=== PATIENT | male | born 1970 | race Caucasian/White ===

== ENCOUNTER 2021-09-03 19:28 | Emergency (ER) | payer OTHER, SELFPAY ==
[2021-09-03 19:36] VITALS: BP 135/92; PULSE 96; RESP 16; TEMP 36.3; O2SAT 96; BMI 25.8
--- NOTE | 2021-09-03 23:21 | ED_ITS ---
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 He actually had foot surgery with [facility] orthopedic surgery , 4 weeks ago. He was supposed to get up to [place] to have his sutures removed over he was unable to provide transportation he called the office and was instructed to go to the nearest emergency department have his sutures removed. Surgery was approximately 4 weeks ago. He has no erythema fever or increased pain. He continues to have a pain in his right big toe. Review of Systems Review of Systems Narrative: GENERAL: Denies chills,fever HEENT: Denies throat pain RESPIRATORY: Denies dyspnea, cough, wheezing CARDIOVASCULAR: Denies chest pain, palpitations GASTROINTESTINAL: Denies nausea, vomiting MUSCULOSKELETAL: Denies extremity pain, injury SKIN: See HPI NEUROLOGIC: Denies weakness, dizziness, headache, numbness 8 point review of systems is negative except for those stated above and HPI Patient History Social History Smoking Status: Current every day smoker Smoking Status: Current every day smoker Substance Use Type: does not use Exam Initial Vital Signs Initial Vital Signs: Vital Signs Temperature 97.3 F L 09/03/21 19:36 Pulse Rate 96 H 09/03/21 19:36 Respiratory Rate 16 09/03/21 19:36 Blood Pressure 135/92 H 09/03/21 19:36 Pulse Oximetry 96 09/03/21 19:36 GENERAL: Well-appearing, well-nourished and in no acute distress. CARDIOVASCULAR: peripheral pulses in tact, cap refill <2 sec RESPIRATORY: No respiratory distress, speaks in full sentences without difficulty EXTREMITIES: Normal range of motion, no clubbing or edema. Neurovascularly intact Pin present right great toe. NEUROLOGICAL: Cranial nerves II through XII grossly intact. Normal gait and speech. SKIN: Sutures both medial and lateral side of foot a non erythematous Course Vital Signs Vital signs: Vital Signs - 8 hr 09/03/21 23:45 Pulse Rate 93 H Respiratory Rate 18 Blood Pressure 143/89 H Pulse Oximetry 98 MDM - Recheck/Abnormal Lab/Rx MDM Narrative Medical decision making narrative: 1140 Dr. Coreas, orthopedics from [facility] has been updated on patient's symptoms agrees with suture removal and patient can follow up next week in clinic Sutures were easily removed Discharge Plan Departure Patient Disposition: Home Clinical Impression: Encounter for removal of sutures Activity Restrictions/Additional Instructions: *You have been diagnosed with suture removal *What to do: Continue with orthopedic postoperative recommendations *Continue to take medications as directed *Follow up with your primary care provider in 2-3 days, follow up with ortho next week as scheduled or call [phone] *Return to ER if you should have redness pain swelling, or any new, worsening or concerning symptoms
[2021-09-03 23:45] VITALS: BP 143/89; PULSE 93; RESP 18; O2SAT 98
== END 2021-09-03 23:52 | disposition home or self-care (01) ==
PROVIDERS: Emergency Provider Emergency Medicine
DX: Z48.02 Encounter for removal of sutures (principal)
CPT/HCPCS: 99281

== ENCOUNTER 2021-09-06 16:54 | Emergency (ER) | payer OTHER, MEDICAID, SELFPAY ==
[2021-09-06 16:57] VITALS: PULSE 86; RESP 22; TEMP 36.8; O2SAT 100
--- NOTE | 2021-09-06 17:14 | DI.CT.S_ITS ---
PROCEDURE: CT KIDNEY URETER BLADDER (KUB) INDICATIONS: rt flank pain, +nephrolithiasis TECHNIQUE: Axial sections were acquired from the lung bases to the pubic symphysis. Coronal and sagittal reformats were performed. For radiation dose reduction, the following was used: automated exposure control, adjustment of mA and/or kV according to patient size. COMPARISON: [facility], CT, ABD/PELVIS W/CON (PNL), 03/27/2011, 11:27. FINDINGS: Image quality: Excellent. Lung bases: Unremarkable. Heart: No significant findings. URINARY: Right Kidney: A 2 mm nonobstructing calculus is seen in the inferior pole of the right kidney. No hydronephrosis. Right Ureter: There is mild right periureteral fat stranding without significant hydroureter. Left Kidney: No renal calculi or hydronephrosis. Left Ureter: No hydroureter. Bladder: A 2 mm calculus is seen in the posterior dependent portion of the bladder. No significant bladder wall thickening is seen. ABDOMEN: Liver: Unremarkable. Gallbladder: Unremarkable. Biliary ducts: Unremarkable. Pancreas: Unremarkable. Spleen: Unremarkable. Adrenal Glands: Unremarkable. Stomach and Bowel: Stomach, small bowel loops, and colon are unremarkable. Normal appendix. Peritoneum: No abnormal intraperitoneal fluid. No free air. Ventral Wall: No hernia. Abdominal Nodes: No enlarged retroperitoneal or mesenteric lymph nodes. Vessels: Aorta and inferior vena cava are normal in size. PELVIS: Pelvic Organs: Unremarkable. Pelvic Nodes: Unremarkable. Miscellaneous: No inguinal hernias are seen. Bones: Unremarkable. IMPRESSION: 1. Posterior dependent 2 mm calculus is seen in the bladder. Mild right periureteral stranding is suspicious for recent ureteral transit. No significant hydroureter or hydronephrosis is seen. 2. Additional nonobstructing 2 mm calculus in the inferior pole of the right kidney. Dictated by: Hilario Austin M.D. on 09/06/2021 at 17:34 Approved by: Hilario Austin M.D. on 09/06/2021 at 17:40
[2021-09-06 17:23] LABS: Add Manual Diff / Slide Review NO; Basophils Absolute Auto 100 /uL (0-100); Basophils Percent Auto 1.5 % (0-2); Eosinophils Absolute Auto 200 /uL (0-450); Eosinophils Percent Auto 3.6 % (2-4); Hematocrit 43.4 % (41-53); Lymphocytes Absolute Auto 1800 /uL (1100-4500); Lymphocytes Percent Auto 37.5 % (25-40); Mean Corpuscular HGB Conc 34.4 % (30-36); Mean Corpuscular Hemoglobin 30.1 PG (26-34); Mean Corpuscular Volume 87.5 fL (80-100); Monocytes Absolute Auto 400 /uL (0-900); Monocytes Percent Auto 7.8 % (3-14); Neutrophils Absolute Auto 2400 /uL (1500-7000); Neutrophils Percent Auto 49.6 % (50-75); Platelet Count 308 X10^3/uL (150-400); Red Blood Cell Count 4.97 X10^6/uL (4.5-5.9); White Blood Cell Count 4.8 X10^3/uL (4.5-11.0)
[2021-09-06 17:48] LABS: Alanine Aminotransferase 23 IU/L (<50); Albumin 4.4 g/dL (3.5-5.0); Albumin Globulin Ratio 1.5 (1.0-2.8); Alkaline Phosphatase 63 U/L (38-126); Aspartate Aminotransferase 26 IU/L (17-59); BUN Creatinine Ratio 13.4 (6-22); Bilirubin Total 0.3 mg/dL (0.2-1.3); Blood Urea Nitrogen 16 mg/dL (9-20); Calcium 9.4 mg/dL (8.4-10.2); Carbon Dioxide 27 mmol/L (22-32); Chloride 107 mmol/L (98-107); Estimated Glomerular Filt Rate > 60.0 mL/min (>60); Globulin 2.9 g/dL (1.7-4.1); Glucose 113 mg/dL (70-100); HEMOLYSIS 20 (0-50); Lipase 125 U/L (23-300); Potassium 4.2 mmol/L (3.4-5.1); Sodium 138 mmol/L (137-145); Total Protein 7.3 g/dL (6.3-8.2)
[2021-09-06] MEDS: TAMSULOSIN 0.4 MG CAPSULE PO (17:52)
[2021-09-06] MEDS: SODIUM CHLORIDE 0.9% 1,000 ML 1000 ML IV (17:52)
--- NOTE | 2021-09-06 18:08 | ED_ITS ---
HPI - Abdominal Pain <DILLAN Peterson - Last Filed: 09/06/21 18:21> General Chief Complaint: Abdominal Pain Stated Complaint: Rt Kidney Pain Time Seen by Provider: 09/06/21 17:14 Source: patient Mode of arrival: Ambulatory History of Present Illness HPI narrative: 51-year-old male presents to the emergency department for right-sided flank pain which started today. He denies this ever happening before, reports it was painful to urinate this morning, patient reports this is the worst pain he has ever had. Denies any chest pain, shortness of breath, difficulty breathing, abdominal pain, nausea vomiting. Endorses that nothing makes his pain better or worse, he is not taking any medication prior to arrival, he has been afebrile, without any pertinent medical history. Related Data Previous Rx's Medication Instructions Recorded tamsulosin 0.4 mg capsule (Flomax) 0.4 mg PO DAILY 14 Days #14 cap 09/06/21 Allergies Allergy/AdvReac Type Severity Reaction Status Date / Time No Known Drug Allergies Allergy Verified 09/06/21 17:44 Review of Systems <DILLAN Peterson - Last Filed: 09/06/21 18:21> Review of Systems Narrative: General: denies fever, chills Head/Neck: denies headache, neck pain Eyes: denies visual changes, eye pain Cardio: denies chest pain, palpitations Respiratory: denies shortness of breath, cough GI: denies abdominal pain, nausea, vomiting, or diarrhea, endorses right flank pain which is the worst of his life : denies dysuria, hematuria MSK: denies joint pain, muscle weakness Skin: denies rash, itching Neuro: denies numbness, tingling Patient History <DILLAN Peterson - Last Filed: 09/06/21 18:21> Social History Smoking Status: Current every day smoker Smoking Status: Current every day smoker Substance Use Type: does not use Exam <DILLAN Peterson - Last Filed: 09/06/21 18:21> Narrative Exam Narrative: Independently reviewed vitals signs and nursing notes. General: Awake, alert, nontoxic, no cardiorespiratory distress Head/Neck: Atraumatic, neck full range of motion Eyes: EOMI, conjunctiva normal Nose: nares patent, no rhinorrhea Mouth/Throat: moist mucus membranes, posterior pharynx normal, no oral lesions Cardio: Regular rate and rhythm, no peripheral edema Respiratory: respirations unlabored without wheezing, stridor, or rales. No retractions. GI: Abdomen soft, nontender, right CVA tenderness to palpation, mostly resolved on exam, patient's CT indicated 2mm renal calculi inferior pole right kidney is nonobstructive, 2mm calculi also visualized in bladder. Patient most likely passed the for stone in triage when he was laying on the floor writhing in pain. He was given Toradol with marked improvement in his pain. MSK: Moves all extremities, neurovascularly intact Skin: Normal capillary refill, no rash Neuro: Normal speech and cognition, normal gait Initial Vital Signs Initial Vital Signs: Vital Signs Temperature 98.3 F 09/06/21 16:57 Pulse Rate 86 09/06/21 16:57 Respiratory Rate 22 09/06/21 16:57 Pulse Oximetry 100 09/06/21 16:57 <Sandi Paige DO - Last Filed: 09/09/21 13:23> Initial Vital Signs Initial Vital Signs: Vital Signs Temperature 98.3 F 09/06/21 16:57 Pulse Rate 86 09/06/21 16:57 Respiratory Rate 22 09/06/21 16:57 Pulse Oximetry 100 09/06/21 16:57 Course <DILLAN Peterson - Last Filed: 09/06/21 18:21> Orders Ordered: Discontinued Medications Hydrocodone Bitart/Acetaminophen (Hydrocodone/Acet 5/325 Tablet) 1 tab PO NOW ONE Stop: 09/06/21 18:10 Last Admin: 09/06/21 18:54 Dose: 1 tab Documented by: ANAYELI Sodium Chloride (Normal Saline 0.9%) 1,000 mls @ 1,000 mls/hr IV BOLUS ONE Stop: 09/06/21 18:15 Last Infusion: 09/06/21 18:55 Dose: 0 mls/hr Documented by: Admin: 09/06/21 17:52 Dose: 1,000 mls/hr Documented by: ANAYELI Ketorolac Tromethamine (Ketorolac 30 Mg/Ml Vial) 15 mg IV NOW ONE Stop: 09/06/21 17:02 Last Admin: 09/06/21 18:52 Dose: 15 mg Documented by: ROSS Ondansetron HCl (Ondansetron 4 Mg/2 Ml Inj) 4 mg IV NOW ONE Stop: 09/06/21 17:01 Last Admin: 09/06/21 18:52 Dose: 4 mg Documented by: ROSS Tamsulosin HCl (Tamsulosin 0.4 Mg Capsule) 0.4 mg PO NOW ONE Stop: 09/06/21 17:15 Last Admin: 09/06/21 17:52 Dose: 0.4 mg Documented by: ANAYELI Vital Signs Vital signs: Vital Signs - 8 hr 09/06/21 16:57 Temperature 98.3 F Pulse Rate 86 Respiratory Rate 22 Pulse Oximetry 100 <Sandi Paige, - Last Filed: 09/09/21 13:23> Orders Ordered: Discontinued Medications Hydrocodone Bitart/Acetaminophen (Hydrocodone/Acet 5/325 Tablet) 1 tab PO NOW ONE Stop: 09/06/21 18:10 Last Admin: 09/06/21 18:54 Dose: 1 tab Documented by: ANAYELI Sodium Chloride (Normal Saline 0.9%) 1,000 mls @ 1,000 mls/hr IV BOLUS ONE Stop: 09/06/21 18:15 Last Infusion: 09/06/21 18:55 Dose: 0 mls/hr Documented by: Admin: 09/06/21 17:52 Dose: 1,000 mls/hr Documented by: ANAYELI Ketorolac Tromethamine (Ketorolac 30 Mg/Ml Vial) 15 mg IV NOW ONE Stop: 09/06/21 17:02 Last Admin: 09/06/21 18:52 Dose: 15 mg Documented by: ROSS Ondansetron HCl (Ondansetron 4 Mg/2 Ml Inj) 4 mg IV NOW ONE Stop: 09/06/21 17:01 Last Admin: 09/06/21 18:52 Dose: 4 mg Documented by: ROSS Tamsulosin HCl (Tamsulosin 0.4 Mg Capsule) 0.4 mg PO NOW ONE Stop: 09/06/21 17:15 Last Admin: 09/06/21 17:52 Dose: 0.4 mg Documented by: ANAYELI Vital Signs Vital signs: Vital Signs - 8 hr 09/06/21 16:57 Temperature 98.3 F Pulse Rate 86 Respiratory Rate 22 Pulse Oximetry 100 MDM - Abdominal Pain <DILLAN Peterson - Last Filed: 09/06/21 18:21> Lab Data Result diagrams: 09/06/21 17:15 09/06/21 17:15 Labs: Lab Results 09/06/21 09/06/21 Range/Units 17:15 17:15 WBC 4.8 (4.5-11.0) X10^3/uL RBC 4.97 (4.5-5.9) X10^6/uL Hgb 15.0 (13.5-17.5) g/dL Hct 43.4 (41-53) % MCV 87.5 (80-100) fL MCH 30.1 (26-34) PG MCHC 34.4 (30-36) % RDW 13.0 (11.6-14.8) % Plt Count 308 (150-400) X10^3/uL Neut % (Auto) 49.6 L (50-75) % Lymph % (Auto) 37.5 (25-40) % Hudson % (Auto) 7.8 (3-14) % Eos % (Auto) 3.6 (2-4) % Baso % (Auto) 1.5 (0-2) % Neut # (Auto) 2400 (2836-4320) /uL Lymph # (Auto) 1800 (6697-2291) /uL Hudson # (Auto) 400 (0-900) /uL Eos # (Auto) 200 (0-450) /uL Baso # (Auto) 100 (0-100) /uL Sodium 138 (137-145) mmol/L Potassium 4.2 (3.4-5.1) mmol/L Chloride 107 (98-107) mmol/L Carbon Dioxide 27 (22-32) mmol/L BUN 16 (9-20) mg/dL Creatinine 1.19 (0.66-1.25) mg/dL Estimated GFR > 60.0 (>60) mL/min BUN/Creatinine Ratio 13.4 (6-22) Glucose 113 H (70-100) mg/dL Calcium 9.4 (8.4-10.2) mg/dL Total Bilirubin 0.3 (0.2-1.3) mg/dL AST 26 (17-59) IU/L ALT 23 (<50) IU/L Alkaline Phosphatase 63 (38-126) U/L Total Protein 7.3 (6.3-8.2) g/dL Albumin 4.4 (3.5-5.0) g/dL Globulin 2.9 (1.7-4.1) g/dL Albumin/Globulin Ratio 1.5 (1.0-2.8) Lipase 125 (23-300) U/L Imaging Data CT KUB: Radiologist's Impression: PROCEDURE:? CT KIDNEY URETER BLADDER (KUB) ? INDICATIONS:? rt flank pain, +nephrolithiasis ? TECHNIQUE:? Axial sections were acquired from the lung bases to the pubic symphysis.? Coronal and sagittal reformats were performed.? For radiation dose reduction, the following was used: ?automated exposure control, adjustment of mA and/or kV according to patient size.? ? COMPARISON:? [facility], CT, ABD/PELVIS W/CON (PNL), 03/27/2011, 11:27. ? FINDINGS:? Image quality:? Excellent.? ? Lung bases:? Unremarkable.? ? Heart:? No significant findings. ? URINARY: Right Kidney:? A 2 mm nonobstructing calculus is seen in the inferior pole of the right kidney.? No hydronephrosis. Right Ureter:? There is mild right periureteral fat stranding without significant hydroureter. ? Left Kidney:? No renal calculi or hydronephrosis. Left Ureter:? No hydroureter.? ? Bladder:? A 2 mm calculus is seen in the posterior dependent portion of the bladder.? No significant bladder wall thickening is seen. ? ABDOMEN: Liver:? Unremarkable.? ? Gallbladder:? Unremarkable. Biliary ducts:? Unremarkable.? ? Pancreas:? Unremarkable.? ? Spleen:? Unremarkable.? ? Adrenal Glands:? Unremarkable.? ? ? Stomach and Bowel:? Stomach, small bowel loops, and colon are unremarkable.? Normal appendix. Peritoneum:? No abnormal intraperitoneal fluid.? No free air.? ? Ventral Wall: ? No hernia.? Abdominal Nodes:? No enlarged retroperitoneal or mesenteric lymph nodes.? Vessels:? Aorta and inferior vena cava are normal in size.? ? PELVIS: Pelvic Organs:? Unremarkable.? ? Pelvic Nodes: Unremarkable. Miscellaneous: No inguinal hernias are seen. ? ? ? Bones:? Unremarkable. ? IMPRESSION:? 1. Posterior dependent 2 mm calculus is seen in the bladder.? Mild right periureteral stranding is suspicious for recent ureteral transit.? No significant hydroureter or hydronephrosis is seen. ? 2. Additional nonobstructing 2 mm calculus in the inferior pole of the right kidney. ? ? Dictated by: Hilario Austin M.D. on 09/06/2021 at 17:34 ? ? Approved by: Hilario Austin M.D. on 09/06/2021 at 17:40 ? MDM Narrative Medical decision making narrative: Male without any pertinent medical history presents to the emergency department writhing in right flank pain. Patient has CVA tenderness on the right, CT KUB shows a posterior dependent 2 mm calculus seen in the bladder, mild right periureteral stranding suspicion for recent ureteral transit. No significant hydroureter or hydronephrosis is visualized. There is an additional nonobstructing 2 mm calculus in the inferior pole of the right kidney. Patient did not have any nausea vomiting, his pain was improved with Toradol, he was also given 1 Vicodin for pain. Patient was given Flomax in the emergency department and prescribed 2 weeks worth int, instructed to take as long as he has pain. He was also given a Urology referral if this is worsening or if he is unable to urinate. Patient is appropriate and amenable to discharge home. Vital signs are stable on repeat examination is unremarkable. Patient has been informed of results. Patient has been given strict return to ER precautions for any new or worsening symptoms. Patient understands to follow up closely with outpatient providers as instructed. Patient understands plan and agrees to discharge home. All questions and concerns answered at this time. <Sandi Paige, DO - Last Filed: 09/09/21 13:23> Lab Data Labs: Lab Results 09/06/21 09/06/21 Range/Units 17:15 17:15 WBC 4.8 (4.5-11.0) X10^3/uL RBC 4.97 (4.5-5.9) X10^6/uL Hgb 15.0 (13.5-17.5) g/dL Hct 43.4 (41-53) % MCV 87.5 (80-100) fL MCH 30.1 (26-34) PG MCHC 34.4 (30-36) % RDW 13.0 (11.6-14.8) % Plt Count 308 (150-400) X10^3/uL Neut % (Auto) 49.6 L (50-75) % Lymph % (Auto) 37.5 (25-40) % Hudson % (Auto) 7.8 (3-14) % Eos % (Auto) 3.6 (2-4) % Baso % (Auto) 1.5 (0-2) % Neut # (Auto) 2400 (1091-0397) /uL Lymph # (Auto) 1800 (7445-2694) /uL Hudson # (Auto) 400 (0-900) /uL Eos # (Auto) 200 (0-450) /uL Baso # (Auto) 100 (0-100) /uL Sodium 138 (137-145) mmol/L Potassium 4.2 (3.4-5.1) mmol/L Chloride 107 (98-107) mmol/L Carbon Dioxide 27 (22-32) mmol/L BUN 16 (9-20) mg/dL Creatinine 1.19 (0.66-1.25) mg/dL Estimated GFR > 60.0 (>60) mL/min BUN/Creatinine Ratio 13.4 (6-22) Glucose 113 H (70-100) mg/dL Calcium 9.4 (8.4-10.2) mg/dL Total Bilirubin 0.3 (0.2-1.3) mg/dL AST 26 (17-59) IU/L ALT 23 (<50) IU/L Alkaline Phosphatase 63 (38-126) U/L Total Protein 7.3 (6.3-8.2) g/dL Albumin 4.4 (3.5-5.0) g/dL Globulin 2.9 (1.7-4.1) g/dL Albumin/Globulin Ratio 1.5 (1.0-2.8) Lipase 125 (23-300) U/L Discharge Plan Departure Patient Disposition: Home Clinical Impression: Calculus of kidney, Calculus in bladder, Acute flank pain Instructions: DI for Kidney Stones Activity Restrictions/Additional Instructions: *You have been diagnosed with a kidney stone and another stone which has passed through your kidney and your ureters, now into your bladder. Please take the Flomax for the next week or as long as you have symptoms, I will give you 2 we eks worth just in case that is not enough. You should passed the other stone in the next couple of days. Please take ibuprofen every 6 hours for the next few days, you do not need any more of that today, if you are unable to urinate, if your pain is out of proportion or intolerable please return to the emergency department. These are small enough to be nonsurgical at this point. Wishing you the best. *What to do: *Please continue to take your regular medications as directed. [x ] New medication prescriptions sent to your pharmacy: [[facility] ] [ ] New medication written as a paper prescription [ ] No new medications given *Please follow up with your primary care provider in 2-3 days, call for an appointment. Let them know you were seen in the Emergency Department and that we ask that you be seen in follow up. We will electronically transmit a record of today's note if your PCP is in our system *If you do not have a primary care provider please contact the [facility] Resource line at [phone]. They will ask some questions about your medical history and help get you set up with a doctor in the community. *Return to Emergency Department if you should have any new, worsening or concerning symptoms, such as [fever greater than 101F, chills, worsening pain, persistent vomiting or other bothersome symptoms] Prescriptions: New tamsulosin [Flomax] 0.4 mg capsule 0.4 mg PO DAILY 14 Days Qty: 14 0RF Referrals: Clark Shields DO [Non-Staff] - 5-7 days (If worsening or unable to urinate) <Sandi Paige DO - Last Filed: 09/09/21 13:23> Cosign ED Attending Coschristianature Attestation: I was immediately available in the department for consultation. Documentation has been reviewed.
[2021-09-06] MEDS: ONDANSETRON 4 MG/2 ML INJ IV (18:52)
[2021-09-06] MEDS: KETOROLAC 30 MG/ML VIAL 15 MG IV (18:52)
[2021-09-06] MEDS: HYDROCODONE/ACET 5/325 TABLET 1 TAB PO (18:54)
== END 2021-09-06 19:00 | disposition home or self-care (01) ==
PROVIDERS: Emergency Medicine; Emergency Provider Nurse Practitioner Critical Care Medicine
DX: N20.0 Calculus of kidney (principal); N21.0 Calculus in bladder
CPT/HCPCS: 36415; 74176; 80053; 83690; 85025; 96361; 96374; 96375; 99284; J1885; J2405

== ENCOUNTER → 2024-06-28 16:24 | Outpatient (CLI) | payer OTHER, MEDICAID, SELFPAY ==
--- NOTE | 2024-06-28 16:26 | DI.US.S_ITS ---
PROCEDURE: US ABDOMEN LIMITED INDICATIONS: Elevation of levels of liver transaminase levels TECHNIQUE: Real-time focused scanning was performed of the abdomen, with image documentation. COMPARISON: [facility], CT, CT KIDNEY URETER BLADDER (KUB), 09/06/2021, 17:23. FINDINGS: The liver demonstrates enlarged size. The liver demonstrates generalized prominently increased echogenicity. This decreases ultrasound sensitivity for detection of hepatic masses. An area of focal fatty sparing can be seen measuring up to 19 mm. The main portal vein demonstrates normal size and demonstrates normal appearing, hepatopetal flow. No findings of gallstones or sludge are seen. The gallbladder wall is not thickened, measuring 3 mm or less. No specific pericholecystic fluid is seen. The sonographic Durant sign is negative. The common bile duct measures at the upper limits of normal at 7 mm. The pancreas is not seen, secondary to overlying bowel gas. No free fluid can be seen. This study is limited by body habitus and bowel gas. IMPRESSION: An enlarged, fatty infiltrated liver is seen. The gallbladder demonstrates a normal appearance. The common bile duct measures at the upper limits of normal. Dictated by: Adrien Mejias M.D. on 06/28/2024 at 17:33 Approved by: Adrien Mejias M.D. on 06/28/2024 at 17:35
== END ==
PROVIDERS: Referring Provider Physician Assistant; Visit Provider Physician Assistant
DX: K76.0 Fatty (change of) liver, not elsewhere classified (principal); R74.01 Elevation of levels of liver transaminase levels
CPT/HCPCS: 76705